=== PATIENT | female | born 1990 | race Caucasian/White ===

== ENCOUNTER 2019-01-27 03:40 | Inpatient (IN) | payer BC ==
[2019-01-27] MEDS ORDERED: Sodium Chloride 0.9% 10 ML Syringe FLUSH PRN (17:14)
[2019-01-27] MEDS ORDERED: Methylergonovine 0.2 MG/1 ML Amp IM PRN (17:14)
[2019-01-27] MEDS ORDERED: Lidocaine 1% 50 ML MDV INJECT PRN (17:14)
[2019-01-27] MEDS ORDERED: Water For Irrigation,Sterile 1,000 ML Container IRR PRN (17:14)
[2019-01-27] MEDS ORDERED: Butorphanol 1 MG/ML SDV IVPUSH PRN (17:14)
[2019-01-27] MEDS ORDERED: Carboprost Tromethamine 250 MCG/1 ML Amp IM PRN (17:14)
[2019-01-27] MEDS ORDERED: Tranexamic Acid 1,000 MG in Sodium Chloride 0.9% 100 ML IV PRN (17:14)
[2019-01-27] MEDS ORDERED: Sodium Chloride 0.9% 2.5 ML Syringe FLUSH PRN (17:14)
[2019-01-27] MEDS ORDERED: Misoprostol 200 MCG Tab PO PRN (17:14)
[2019-01-27] MEDS ORDERED: Sodium Chloride 0.9% 10 ML SDV IV PRN (17:14)
[2019-01-27] MEDS ORDERED: Nalbuphine 10 MG/1 ML Vial IVPUSH PRN (17:14)
[2019-01-27] MEDS ORDERED: Oxytocin/0.9 % Sodium Chloride 30 UNIT/500 ML BAG IV SCH ×2 (17:15→17:30)
[2019-01-27] MEDS ORDERED: Terbutaline 1 MG/ML SDV SUBCUT PRN (17:25)
[2019-01-27] MEDS ORDERED: Misoprostol 25 MCG (1/4 of 100 MCG) Tab VAG PRN ×2 (17:25)
[2019-01-27 19:43] LABS: CHLORIDE,CL 105 mmol/L (98-107); SODIUM,NA 140 mmol/L (136-145)
[2019-01-27] MEDS: Lactated Ringers 1,000 ML IV SCH (23:05)
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
[2019-01-27] MEDS ORDERED: fentaNYL 100 MCG/2 ML SDV ONE (23:50)
[2019-01-27] MEDS ORDERED: Lidocaine HCl/EPINEPHrine 5 ML IJ ONE (23:50)
[2019-01-28] MEDS: Lactated Ringers 1,000 ML IV SCH (00:37)
[2019-01-28] MEDS ORDERED: Bupivacaine 0.25% 10 ML SDV ONE (01:56)
[2019-01-28] MEDS ORDERED: Benzocaine/Menthol 20%-0.5% Spray 78 GM Cannister TOP PRN (04:53)
[2019-01-28] MEDS ORDERED: Witch Hazel Medicated Pads 40/Jar TOP PRN (04:53)
[2019-01-28] MEDS ORDERED: Ibuprofen 400 MG Tab PO PRN (04:53)
[2019-01-28] MEDS ORDERED: Lanolin 100% Cream 7 GM Tube TOP PRN (04:53)
[2019-01-28] MEDS ORDERED: oxyCODONE 5 MG Tab PO PRN (04:53)
[2019-01-28] MEDS ORDERED: Docusate Sodium 100 MG Cap PO PRN (04:53)
[2019-01-28] MEDS ORDERED: Bisacodyl 10 MG Supp RECTAL PRN (04:53)
[2019-01-28] MEDS ORDERED: Acetaminophen 500 MG Tab PO PRN ×2 (04:53)
--- NOTE | 2019-01-28 04:59 | PCM.DEL ---
L & D Note - General Info Date of Service: 01/28/19 Mother's Due Date: 01/31/19 - Delivery Note Labor: Augmented by Oxytocin Cervical Ripening Method: Misoprostil Delivery Outcome: Livebirth Delivery Method: Spontaneous Vaginal Delivery-Single Presentation: Right Occiput Anterior (SOCORRO) Nuchal Cord: None Anesthesia Type: Epidural Anesthetic: Lidocaine (Xylocaine) 1% Plain Local Anesthetic Volume: 4cc Laceration: 2nd Degree Suture type: Vicryl, Other (3.0 monocryl) Suture size: 3-0 Placenta: Intact Cord: 3 Vessels Estimated Blood Loss: 350 Resuscitation Needed: No Score 1 min: 8 Score 5 min: 9 Delivery Comments (Free Text/Narrative):: Live female delivered at 3.40am , 8/9 , weight: 3200g , second degree laceration repaired in layers with 3.0 vicryl and 3.0 monocryl Hemabate given due to some atony - General Info Date of Service: 01/28/19 - Patient Data Weight - Most Recent: 98.883 kg Lab Results Last 24 Hours: Laboratory Results - last 24 hr 01/27/19 01/27/19 01/27/19 Range/Units 17:32 17:32 17:32 WBC 11.64 H (4.0-11.0) K/uL RBC 4.20 L (4.30-5.90) M/uL Hgb 13.4 (12.0-16.0) g/dL Hct 38.5 (36.0-46.0) % MCV 91.7 (80.0-98.0) fL MCH 31.9 (27.0-32.0) pg MCHC 34.8 (31.0-37.0) g/dL RDW Std Deviation 47.7 (28.0-62.0) fl RDW Coeff of Kathrin 14 (11.0-15.0) % Plt Count 238 (150-400) K/uL MPV 12.90 H (7.40-12.00) fL Nucleated RBC % 0.0 /100WBC Nucleated RBCs # 0 K/uL Sodium 140 (136-145) mmol/L Potassium 3.6 (3.5-5.1) mmol/L Chloride 105 (98-107) mmol/L Carbon Dioxide 20.5 L (21.0-32.0) mmol/L BUN 6 L (7.0-18.0) mg/dL Creatinine 0.7 (0.6-1.0) mg/dL Est Cr Clr Drug Dosing 103.32 mL/min Estimated GFR (MDRD) > 60.0 ml/min Glucose 71 L (74-106) mg/dL Uric Acid 5.7 (2.6-7.2) mg/dL Calcium 9.0 (8.5-10.1) mg/dL Total Bilirubin 0.3 (0.2-1.0) mg/dL AST 24 (15-37) IU/L ALT 20 (14-63) IU/L Alkaline Phosphatase 203 H (46-116) U/L Total Protein 6.4 (6.4-8.2) g/dL Albumin 2.6 L (3.4-5.0) g/dL Globulin 3.8 (2.6-4.0) g/dL Albumin/Globulin Ratio 0.7 L (0.9-1.6) Urine Color Urine Appearance Urine pH (5.0-8.0) Ur Specific [place] (1.001-1.035) Urine Protein (NEGATIVE) mg/dL Urine Glucose (UA) (NEGATIVE) mg/dL Urine Ketones (NEGATIVE) mg/dL Urine Occult Blood (NEGATIVE) Urine Nitrite (NEGATIVE) Urine Bilirubin (NEGATIVE) Urine Urobilinogen (<2.0) EU/dL Ur Leukocyte Esterase (NEGATIVE) Blood Type A POSITIVE Antibody Screen NEGATIVE 01/27/19 Range/Units 20:15 WBC (4.0-11.0) K/uL RBC (4.30-5.90) M/uL Hgb (12.0-16.0) g/dL Hct (36.0-46.0) % MCV (80.0-98.0) fL MCH (27.0-32.0) pg MCHC (31.0-37.0) g/dL RDW Std Deviation (28.0-62.0) fl RDW Coeff of Kathrin (11.0-15.0) % Plt Count (150-400) K/uL MPV (7.40-12.00) fL Nucleated RBC % /100WBC Nucleated RBCs # K/uL Sodium (136-145) mmol/L Potassium (3.5-5.1) mmol/L Chloride (98-107) mmol/L Carbon Dioxide (21.0-32.0) mmol/L BUN (7.0-18.0) mg/dL Creatinine (0.6-1.0) mg/dL Est Cr Clr Drug Dosing mL/min Estimated GFR (MDRD) ml/min Glucose (74-106) mg/dL Uric Acid (2.6-7.2) mg/dL Calcium (8.5-10.1) mg/dL Total Bilirubin (0.2-1.0) mg/dL AST (15-37) IU/L ALT (14-63) IU/L Alkaline Phosphatase (46-116) U/L Total Protein (6.4-8.2) g/dL Albumin (3.4-5.0) g/dL Globulin (2.6-4.0) g/dL Albumin/Globulin Ratio (0.9-1.6) Urine Color YELLOW Urine Appearance SLT CLOUDY Urine pH 5.5 (5.0-8.0) Ur Specific [place] 1.010 (1.001-1.035) Urine Protein NEGATIVE (NEGATIVE) mg/dL Urine Glucose (UA) NEGATIVE (NEGATIVE) mg/dL Urine Ketones NEGATIVE (NEGATIVE) mg/dL Urine Occult Blood SMALL H (NEGATIVE) Urine Nitrite NEGATIVE (NEGATIVE) Urine Bilirubin NEGATIVE (NEGATIVE) Urine Urobilinogen 0.2 (<2.0) EU/dL Ur Leukocyte Esterase NEGATIVE (NEGATIVE) Blood Type Antibody Screen Med Orders - Current: Current Medications Acetaminophen (Tylenol Extra Strength) 500 mg PO Q4H PRN PRN Reason: Pain Acetaminophen (Tylenol Extra Strength) 1,000 mg PO Q4H PRN PRN Reason: Pain Benzocaine/Menthol (Dermoplast Pain Relief 20%-0.5% [place]) 78 gm TOP ASDIRECTED PRN PRN Reason: Perineal Comfort Measure Bisacodyl (Dulcolax) 10 mg RECTAL ONETIME PRN PRN Reason: Constipation Carboprost Tromethamine (Hemabate Ds) 250 mcg IM ASDIRECTED PRN PRN Reason: Post Hemorrhage Emollient Ointment (Lansinoh Hpa) 0 gm TOP ASDIRECTED PRN PRN Reason: Sore Nipples Lactated Ringer's (Ringers, Lactated) 1,000 mls @ 150 mls/hr IV ASDIRECTED CHUCHO Last Infusion: 01/28/19 01:09 Dose: 150 mls/hr Oxytocin/Sodium Chloride (Oxytocin 30 Unit/500 Ml-Ns) 30 unit in 500 mls @ 500 mls/hr IV TITRATE [facility] Tranexamic Acid 1,000 mg/ (Sodium Chloride) 110 mls @ 660 mls/hr IV ONETIME PRN PRN Reason: Bleeding Oxytocin/Sodium Chloride (Oxytocin 30 Unit/500 Ml-Ns) 30 unit in 500 mls @ 2 mls/hr IV TITRATE [facility]; Protocol Last Titration: 01/28/19 03:40 Dose: 99 munits/min, 99 mls/hr Ibuprofen (Motrin) 400 mg PO Q4H PRN PRN Reason: Pain Ibuprofen (Motrin) 800 mg PO Q6H PRN PRN Reason: Pain Lidocaine HCl (Xylocaine 1%) 50 ml INJECT ONETIME PRN PRN Reason: Laceration repair Last Admin: 01/28/19 04:10 Dose: 50 ml Methylergonovine Maleate (Methergine) 0.2 mg IM ASDIRECTED PRN PRN Reason: Post Hemorrhage Misoprostol (Cytotec) 200 mcg PO ONETIME PRN PRN Reason: Post Hemorrhage Oxycodone HCl (Oxycodone) 5 mg PO Q2H PRN PRN Reason: Pain Sodium Chloride (Saline Flush) 10 ml FLUSH ASDIRECTED PRN PRN Reason: Keep Vein Open Sodium Chloride (Saline Flush) 2.5 ml FLUSH ASDIRECTED PRN PRN Reason: Keep Vein Open Sodium Chloride (Normal Saline) 10 ml IV ASDIRECTED PRN PRN Reason: IV Use Sterile Water (Sterile Water For Irrigation) 1,000 ml IRR ASDIRECTED PRN PRN Reason: delivery Last Admin: 01/28/19 04:10 Dose: 1,000 ml Witch Neris (Tucks) 1 pad TOP ASDIRECTED PRN PRN Reason: comfort care Discontinued Medications Bupivacaine HCl (Sensorcaine-Mpf 0.25%) Confirm Administered Dose 10 ml .ROUTE .STK-MED ONE Stop: 01/28/19 01:57 Butorphanol Tartrate (Stadol) 1 mg IVPUSH Q1H PRN PRN Reason: Pain Fentanyl (Sublimaze) Confirm Administered Dose 100 mcg .ROUTE .STK-MED ONE Stop: 01/27/19 23:51 Fentanyl/Bupivacaine HCl (Znedskmk-Xlace-Ep 2 Mcg/Ml-0.125%) Confirm Administered Dose 100 mls @ as directed .ROUTE .STK-MED ONE Stop: 01/27/19 23:51 Lidocaine/Epinephrine (Lidocaine 1.5%-Epi 1:200,000) Confirm Administered Dose 5 ml IJ .STK-MED ONE Stop: 01/27/19 23:51 Misoprostol (Cytotec) 25 mcg VAG ONETIME PRN PRN Reason: Cervical Ripening Last Admin: 01/27/19 18:09 Dose: 25 mcg Misoprostol (Cytotec) 25 mcg VAG Q4H PRN PRN Reason: Cervical Ripening Nalbuphine HCl (Nubain) 10 mg IVPUSH Q1H PRN PRN Reason: Pain (severe 7-10) Terbutaline Sulfate (Brethine) 0.25 mg SUBCUT ASDIRECTED PRN PRN Reason: Tacysystole - Problem List & Annotations (1) Vaginal delivery SNOMED Code(s): 348226289 Code(s): O80 - ENCOUNTER FOR FULL-TERM UNCOMPLICATED DELIVERY Status: Acute Current Visit: Yes - Problem List Review Problem List Initiated/Reviewed/Updated: Yes - My Orders Last 24 Hours: My Active Orders 01/27/19 17:14 Patient Status [ADT] Routine Heart Tones [RC] CONTINUOUS Non Stress Test [RC] PER UNIT ROUTINE May Shower [RC] ASDIRECTED Notify Provider [RC] PRN Up ad Siomara [RC] ASDIRECTED Vaginal Exam [RC] PRN Vital Signs [RC] PER UNIT ROUTINE Carboprost Tromethamine [Hemabate DS] 250 mcg IM ASDIRECTED PRN Lidocaine 1% [Xylocaine 1%] 50 ml INJECT ONETIME PRN Methylergonovine [Methergine] 0.2 mg IM ASDIRECTED PRN Sodium Chloride 0.9% [Normal Saline] 10 ml IV ASDIRECTED PRN Sodium Chloride 0.9% [Saline Flush] 10 ml FLUSH ASDIRECTED PRN Sodium Chloride 0.9% [Saline Flush] 2.5 ml FLUSH ASDIRECTED PRN Tranexamic Acid [Cyklokapron] 1,000 mg Sodium Chloride 0.9% [Normal Saline] 100 ml IV ONETIME Water For Irrigation,Sterile [Sterile Water for Irrigation] 1,000 ml IRR ASDIRECTED PRN miSOPROStol [Cytotec] 200 mcg PO ONETIME PRN Peripheral IV Insertion Adult [OM.PC] Routine 01/27/19 17:15 Lactated Ringers [Ringers, Lactated] 1,000 ml IV ASDIRECTED Oxytocin/0.9 % Sodium Chloride [Oxytocin 30 Unit/500 ML-NS] 30 unit in 500 ml IV TITRATE 01/27/19 17:25 Bedrest Bathroom Privileges [RC] ASDIRECTED Communication Order [RC] ASDIRECTED Communication Order [RC] ASDIRECTED Communication Order [RC] ASDIRECTED Notify Provider [RC] PRN Notify Provider [RC] PRN Notify Provider [RC] STAT Vaginal Exam [RC] PRN Vital Signs [RC] PER UNIT ROUTINE 01/27/19 17:30 Oxytocin/0.9 % Sodium Chloride [Oxytocin 30 Unit/500 ML-NS] 30 unit in 500 ml IV TITRATE Medication Administration Instruction [OM.PC] Q3H 01/27/19 Dinner Regular Diet [DIET] 01/28/19 04:53 Patient Status [ADT] Routine May Shower [RC] ASDIRECTED Up ad Siomara [RC] ASDIRECTED Vital Signs [RC] PER UNIT ROUTINE Acetaminophen [Tylenol Extra Strength] 1,000 mg PO Q4H PRN Acetaminophen [Tylenol Extra Strength] 500 mg PO Q4H PRN Benzocaine/Menthol [Dermoplast Pain Relief 20%-0.5% [place]] 78 gm TOP ASDIRECTED PRN Bisacodyl [Dulcolax] 10 mg RECTAL ONETIME PRN Docusate Sodium [Colace] 100 mg PO BID PRN Ibuprofen [Motrin] 400 mg PO Q4H PRN Ibuprofen [Motrin] 800 mg PO Q6H PRN Lanolin [Lansinoh HPA] See Dose Instructions TOP ASDIRECTED PRN Witch Neris [Tucks] 1 pad TOP ASDIRECTED PRN oxyCODONE 5 mg PO Q2H PRN Assess Lochia [WOMSER] Per Unit Routine Assess Uterine Involution [WOMSER] Per Unit Routine Peripheral IV Discontinue [OM.PC] Routine Resuscitation Status Routine 01/29/19 05:11 HEMOGLOBIN/HEMATOCRIT,HH [HEME] Timed
[2019-01-28] MEDS: Ibuprofen 800 MG Tab PO PRN ×2 (12:48→19:35)
[2019-01-28] MEDS ORDERED: Nicotine 14 MG/24 Hr Patch TRDERM SCH (18:30)
[2019-01-29] MEDS: Ibuprofen 800 MG Tab PO PRN ×2 (04:20→13:01)
--- NOTE | 2019-01-29 08:10 | PCM.PNPP ---
- General Info Date of Service: 01/29/19 Subjective Update: 28 yo P1 s/p PPD 1 , stable , BP well controlled , Denies headache , RUQ pain and BV Functional Status: Reports: Pain Controlled, Tolerating Diet, Ambulating, Urinating - Review of Systems General: Reports: No Symptoms HEENT: Reports: No Symptoms Pulmonary: Reports: No Symptoms Cardiovascular: Reports: No Symptoms Gastrointestinal: Reports: No Symptoms Genitourinary: Reports: No Symptoms Musculoskeletal: Reports: No Symptoms Skin: Reports: No Symptoms Neurological: Reports: No Symptoms Psychiatric: Reports: No Symptoms - General Info Date of Service: 01/29/19 - Patient Data Vital Signs - Most Recent: Last Vital Signs Temp 36.5 C 01/29/19 05:00 Pulse 86 01/29/19 05:00 Resp 18 01/29/19 05:00 BP 125/72 01/29/19 05:00 Pulse Ox 96 01/29/19 05:00 Weight - Most Recent: 98.883 kg I&O - Last 24 Hours: Intake & Output 01/28/19 01/29/19 01/29/19 22:59 06:59 14:59 Output Total 27 Balance -27 Lab Results - Last 24 Hours: Laboratory Results - last 24 hr 01/29/19 Range/Units 04:34 Hgb 8.7 L (12.0-16.0) g/dL Hct 25.6 L (36.0-46.0) % Med Orders - Current: Current Medications Acetaminophen (Tylenol Extra Strength) 500 mg PO Q4H PRN PRN Reason: Pain Acetaminophen (Tylenol Extra Strength) 1,000 mg PO Q4H PRN PRN Reason: Pain Benzocaine/Menthol (Dermoplast Pain Relief 20%-0.5% [place]) 78 gm TOP ASDIRECTED PRN PRN Reason: Perineal Comfort Measure Last Admin: 01/28/19 07:32 Dose: 1 can Bisacodyl (Dulcolax) 10 mg RECTAL ONETIME PRN PRN Reason: Constipation Carboprost Tromethamine (Hemabate Ds) 250 mcg IM ASDIRECTED PRN PRN Reason: Post Hemorrhage Last Admin: 01/28/19 04:43 Dose: 250 mcg Docusate Sodium (Colace) 100 mg PO BID PRN PRN Reason: Constipation Emollient Ointment (Lansinoh Hpa) 0 gm TOP ASDIRECTED PRN PRN Reason: Sore Nipples Last Admin: 01/28/19 07:32 Dose: 1 tube Lactated Ringer's (Ringers, Lactated) 1,000 mls @ 150 mls/hr IV ASDIRECTED CHUCHO Last Infusion: 01/28/19 01:09 Dose: 150 mls/hr Oxytocin/Sodium Chloride (Oxytocin 30 Unit/500 Ml-Ns) 30 unit in 500 mls @ 500 mls/hr IV TITRATE [facility] Tranexamic Acid 1,000 mg/ (Sodium Chloride) 110 mls @ 660 mls/hr IV ONETIME PRN PRN Reason: Bleeding Oxytocin/Sodium Chloride (Oxytocin 30 Unit/500 Ml-Ns) 30 unit in 500 mls @ 2 mls/hr IV TITRATE [facility]; Protocol Last Titration: 01/28/19 03:40 Dose: 99 munits/min, 99 mls/hr Ibuprofen (Motrin) 400 mg PO Q4H PRN PRN Reason: Pain Ibuprofen (Motrin) 800 mg PO Q6H PRN PRN Reason: Pain Last Admin: 01/29/19 04:20 Dose: 800 mg Lidocaine HCl (Xylocaine 1%) 50 ml INJECT ONETIME PRN PRN Reason: Laceration repair Last Admin: 01/28/19 04:10 Dose: 50 ml Methylergonovine Maleate (Methergine) 0.2 mg IM ASDIRECTED PRN PRN Reason: Post Hemorrhage Misoprostol (Cytotec) 200 mcg PO ONETIME PRN PRN Reason: Post Hemorrhage Nicotine (Habitrol) 14 mg TRDERM DAILY [facility] Last Admin: 01/28/19 18:43 Dose: 14 mg Oxycodone HCl (Oxycodone) 5 mg PO Q2H PRN PRN Reason: Pain Last Admin: 01/29/19 04:21 Dose: 5 mg Sodium Chloride (Saline Flush) 10 ml FLUSH ASDIRECTED PRN PRN Reason: Keep Vein Open Sodium Chloride (Saline Flush) 2.5 ml FLUSH ASDIRECTED PRN PRN Reason: Keep Vein Open Sodium Chloride (Normal Saline) 10 ml IV ASDIRECTED PRN PRN Reason: IV Use Sterile Water (Sterile Water For Irrigation) 1,000 ml IRR ASDIRECTED PRN PRN Reason: delivery Last Admin: 01/28/19 04:10 Dose: 1,000 ml Indira Cordon (Tucks) 1 pad TOP ASDIRECTED PRN PRN Reason: comfort care Last Admin: 01/28/19 07:31 Dose: 1 tub Discontinued Medications Bupivacaine HCl (Sensorcaine-Mpf 0.25%) Confirm Administered Dose 10 ml .ROUTE .STK-MED ONE Stop: 01/28/19 01:57 Last Admin: 01/28/19 23:05 Dose: Not Given Butorphanol Tartrate (Stadol) 1 mg IVPUSH Q1H PRN PRN Reason: Pain Fentanyl (Sublimaze) Confirm Administered Dose 100 mcg .ROUTE .STK-MED ONE Stop: 01/27/19 23:51 Last Admin: 01/28/19 23:05 Dose: Not Given Fentanyl/Bupivacaine HCl (Txuopyks-Hxbxr-Le 2 Mcg/Ml-0.125%) Confirm Administered Dose 100 mls @ as directed .ROUTE .STK-MED ONE Stop: 01/27/19 23:51 Last Admin: 01/28/19 23:04 Dose: Not Given Lidocaine/Epinephrine (Lidocaine 1.5%-Epi 1:200,000) Confirm Administered Dose 5 ml IJ .STK-MED ONE Stop: 01/27/19 23:51 Last Admin: 01/28/19 23:05 Dose: Not Given Misoprostol (Cytotec) 25 mcg VAG ONETIME PRN PRN Reason: Cervical Ripening Last Admin: 01/27/19 18:09 Dose: 25 mcg Misoprostol (Cytotec) 25 mcg VAG Q4H PRN PRN Reason: Cervical Ripening Nalbuphine HCl (Nubain) 10 mg IVPUSH Q1H PRN PRN Reason: Pain (severe 7-10) Terbutaline Sulfate (Brethine) 0.25 mg SUBCUT ASDIRECTED PRN PRN Reason: Tacysystole - Interaction Support Person: - Recovery Exam Fundal Tone: Firm Fundal Level: At Umbilicus Fundal Placement: Midline Lochia Amount: Scant Lochia Color: Rubra/Red Perineum Description: Other (see below) Other Perinuem Description: 2nd deg laceration Episiotomy/Laceration: Approximated Bladder Status: Voiding Urinary Elimination: Voided - Exam General: Alert HEENT: Pupils Equal Neck: Supple Lungs: Clear to Auscultation Cardiovascular: Regular Rate, Regular Rhythm GI/Abdominal Exam: Normal Bowel Sounds Extremities: Normal Inspection (slight pedal edema ) Neurological: No New Focal Deficit Psy/Mental Status: Alert - Problem List & Annotations (1) Vaginal delivery SNOMED Code(s): 498434904 Code(s): O80 - ENCOUNTER FOR FULL-TERM UNCOMPLICATED DELIVERY Status: Acute Current Visit: Yes - Problem List Review Problem List Initiated/Reviewed/Updated: Yes - Assessment Assessment:: 28 yo P1 s/p PPD1 stable , Normal Blood pressure - Plan Plan:: Discharge home today for BP check in 1 week and Routine in 6 weeks
[2019-01-29] MEDS ORDERED: Measles, Mumps & Rubella Vaccine 0.5 ML SDV SUBCUT ONE (08:11)
--- NOTE | 2019-01-29 11:48 | OR ---
SURGEON: ELIZABET LEON DATE OF PROCEDURE: 01/28/2019 PREOPERATIVE DIAGNOSIS: A 28-year-old, 2, para 0-0-1-0 at 39 weeks 4 days, admitted for induction of labor secondary to gestational hypertension, rule out preeclampsia. POSTOPERATIVE DIAGNOSIS: A 28-year-old, 2, para 0-0-1-0 at 39 weeks 4 days, admitted for induction of labor secondary to gestational hypertension, rule out preeclampsia. PROCEDURE: Normal spontaneous vaginal delivery and repair of second-degree vaginal laceration. NOTES AND FINDINGS: A live female delivered at 0340 hours, scores were 8 and 9. Weight is 3200 g. ANESTHESIA: Epidural. ESTIMATED BLOOD LOSS: 350 mL. BRIEF HISTORY: The patient was being followed for intermittent proteinuria in the urine and also was complaining of some spots in the vision and some occasional headache and increasing pedal swelling. The patient had blood pressure that was normal in the clinic, but due to concern that the patient might be developing preeclampsia, the patient was advised and patient wanted to be induced. She was explained the risks, benefits, and alternatives, and she desired to proceed. The patient's induction of labor was started with Cytotec. After she got Pitocin, and she made normal labor progress and became fully dilated. The patient had normal PIH labs. PROCEDURE IN DETAIL: With the patient being fully dilated, she was encouraged to push. She delivered the head, followed subsequently by the anterior and posterior shoulder. Pitocin was started. Then, the body of the was delivered. was placed on maternal abdomen. Delayed cord clamping was observed. The cord was clamped and cut, and placenta was then delivered via controlled cord traction. Also, the perineum was then inspected and noted to be having a second-degree laceration, It was repaired in layers, and there was slightly increased amount of bleeding. As a result, Hemabate was given x1. After repair of the laceration, the uterus was massaged and found to be hemostatic. The patient was left in delivery room in stable condition. All instrument and pad counts were correct x2. ARON COREAS /[id number] ALYSSA
== END 2019-01-29 14:10 | disposition home or self-care (01) | DRG 560 ==
LOC: MW.OB 03:40 → OBSVTOIN 01-28 03:40 → MW.OB 01-28 09:59
PROVIDERS: ADMIT Obstetrics & Gynecology; ATTEND Obstetrics & Gynecology
PROC: 3E0P7VZ Introduction of Hormone into Female Reproductive, Via Natural or Artificial Opening (ICD-10-PCS; principal; 2019-01-28)
PROC: 3E033VJ Introduction of Other Hormone into Peripheral Vein, Percutaneous Approach (ICD-10-PCS; principal; 2019-01-28)
PROC: 10E0XZZ Delivery of Products of Conception, External Approach (ICD-10-PCS; principal; 2019-01-28)
PROC: 0KQM0ZZ Repair Perineum Muscle, Open Approach (ICD-10-PCS; principal; 2019-01-28)
PROC: 00HU33Z Insertion of Infusion Device into Spinal Canal, Percutaneous Approach (ICD-10-PCS; 2019-01-28)
PROC: 3E0R3BZ Introduction of Anesthetic Agent into Spinal Canal, Percutaneous Approach (ICD-10-PCS; 2019-01-28)
PROC: 3E0234Z Introduction of Serum, Toxoid and Vaccine into Muscle, Percutaneous Approach (ICD-10-PCS; 2019-01-29)
DX: O13.4 Gestational [pregnancy-induced] hypertension without significant proteinuria, complicating childbirth (principal); O99.344 Other mental disorders complicating childbirth; F41.9 Anxiety disorder, unspecified; F32.9 Major depressive disorder, single episode, unspecified; O99.334 Smoking (tobacco) complicating childbirth; Z37.0 Single live birth; F17.210 Nicotine dependence, cigarettes, uncomplicated; O75.89 Other specified complications of labor and delivery; O70.1 Second degree perineal laceration during delivery; O99.62 Diseases of the digestive system complicating childbirth; K59.09 Other constipation; Z3A.39 39 weeks gestation of pregnancy
CPT/HCPCS: 36415; 51702; 59025; 59409; 80053; 81003; 84550; 85014; 85018; 85027; 86850; 86900; 86901; 90471; 90707; A9270-GY; J2001; J2590; J3010; J3490; J7120

== ENCOUNTER 2024-05-26 00:25 | Inpatient (IN) | payer BC ==
[2024-05-26] MEDS ORDERED: Nalbuphine 10 MG/1 ML Vial IVPUSH PRN (00:31)
[2024-05-26] MEDS ORDERED: Sodium Chloride 0.9% 2.5 ML Syringe FLUSH PRN (00:31)
[2024-05-26] MEDS ORDERED: Sodium Chloride 0.9% 20 ML SDV IV PRN (00:31)
[2024-05-26] MEDS ORDERED: Tranexamic Acid IN NACL,ISO-OS 1,000 MG in Premix Bag 1 BAG IV PRN (00:31)
[2024-05-26] MEDS ORDERED: Lidocaine 1% 50 ML MDV INJECT PRN (00:31)
[2024-05-26] MEDS ORDERED: Terbutaline 1 MG/ML SDV SUBCUT PRN (00:31)
[2024-05-26] MEDS ORDERED: Methylergonovine 0.2 MG/1 ML Amp IM PRN (00:31)
[2024-05-26] MEDS ORDERED: Carboprost Tromethamine 250 MCG/1 mL Vial IM PRN (00:31)
[2024-05-26] MEDS ORDERED: Misoprostol 200 MCG Tab PO PRN (00:31)
[2024-05-26] MEDS ORDERED: Water For Irrigation,Sterile 1,000 ML Container IRR PRN (00:31)
[2024-05-26] MEDS ORDERED: Oxytocin/0.9 % Sodium Chloride 30 UNIT/500 ML BAG IV SCH ×2 (00:45)
[2024-05-26] MEDS: Sodium Chloride 0.9% 10 ML Syringe FLUSH PRN (01:00)
[2024-05-26] MEDS: Lactated Ringers 1,000 ML IV SCH (01:00)
[2024-05-26] MEDS: Misoprostol 25 MCG (1/4 of 100 MCG) Tab VAG PRN ×2 (01:25→06:00)
[2024-05-26 01:26] LABS: HEMATOCRIT 31.3 % (37.0-47.0); HEMOGLOBIN 10.4 g/dL (12.0-16.0); MEAN CORPUSCULAR HEMOGLOBIN 28.2 pg (28.0-32.0); MEAN CORPUSCULAR HGB CONC 33.2 g/dL (32.0-36.0); MEAN CORPUSCULAR VOLUME 84.8 fL (83.0-99.0); MEAN PLATELET VOLUME 12.5 fL (9.4-12.3); PLATELET COUNT,PLT 213 K/uL (150-400); RED BLOOD CELL COUNT 3.69 M/uL (4.10-5.30); WHITE BLOOD CELL COUNT,WBC 9.15 K/uL (3.9-11.3)
[2024-05-26] MEDS: Ondansetron 4 MG/2 ML SDV IVPUSH PRN (03:37)
[2024-05-26] MEDS ORDERED: Bupivacaine 0.5% 10 ML SDV ONE (16:42)
[2024-05-26] MEDS ORDERED: Ropivacaine HCl/PF 200 ML ONE (16:42)
[2024-05-26] MEDS ORDERED: Phenylephrine HCl In 0.9% NaCl 1 MG/10 ML Syringe ONE (16:42)
[2024-05-26] MEDS ORDERED: Bupivacaine 0.5% 10 ML SDV INJECT ONE (17:04)
[2024-05-26] MEDS ORDERED: Phenylephrine HCl In 0.9% NaCl 1 MG/10 ML Syringe IVPUSH PRN (17:04)
[2024-05-26] MEDS ORDERED: ePHEDrine 50 MG/ML SDV IVPUSH PRN ×2 (17:04)
[2024-05-26] MEDS ORDERED: ePHEDrine 50 MG/ML SDV IM PRN (17:04)
[2024-05-26] MEDS ORDERED: Ropivacaine HCl/PF 400 MG in Premix Bag 1 BAG EPIDUR SCH (17:15)
[2024-05-26] MEDS: Tranexamic Acid IN NACL,ISO-OS 1,000 MG in Premix Bag 1 BAG IV PRN (18:35)
[2024-05-26] MEDS: Benzocaine/Menthol 20%-0.5% Spray 78 GM Cannister TOP PRN (19:07)
[2024-05-26] MEDS: Witch Hazel Medicated Pads 40/Jar TOP PRN (19:08)
[2024-05-26] MEDS: Lanolin 100% Cream 7 GM Tube TOP PRN (19:08)
[2024-05-26] MEDS: Methylergonovine 0.2 MG/1 ML Amp IM PRN (19:15)
[2024-05-26] MEDS: Misoprostol 200 MCG Tab RECTAL PRN (19:15)
[2024-05-26 19:18] LABS: PH,UMBILICAL ARTERIAL 7.251 (7.18-7.38)
[2024-05-26 19:19] LABS: PH,UMBILICAL VENOUS 7.348 (7.25-7.45)
[2024-05-26] MEDS: Oxytocin/0.9 % Sodium Chloride 30 UNIT/500 ML BAG ONE (19:19)
[2024-05-26] MEDS ORDERED: Calcium Gluconate 10% 1 GM/10 ML SDV ONE (19:24)
[2024-05-26 19:43] LABS: HEMATOCRIT 32.2 % (37.0-47.0); HEMOGLOBIN 10.4 g/dL (12.0-16.0); MEAN CORPUSCULAR HEMOGLOBIN 28.4 pg (28.0-32.0); MEAN CORPUSCULAR HGB CONC 32.3 g/dL (32.0-36.0); MEAN PLATELET VOLUME 12.4 fL (9.4-12.3); PLATELET COUNT,PLT 228 K/uL (150-400); RED BLOOD CELL COUNT 3.66 M/uL (4.10-5.30); WHITE BLOOD CELL COUNT,WBC 13.21 K/uL (3.9-11.3)
[2024-05-26 19:59] LABS: INR 1.1 (0.86-1.11); PTT,PARTIAL THROMBOPLSTIN TIME 22.4 SEC (23.9-30.7)
[2024-05-26 20:15] LABS: A/G RATIO 0.6 (0.9-1.6); BILIRUBIN TOTAL 0.3 mg/dL (0.2-1.0); CALCIUM 8.3 mg/dL (8.5-10.1); CARBON DIOXIDE,CO2 19.2 mmol/L (21.0-32.0); CREATININE 0.8 mg/dL (0.6-1.0); EST CRCL DRUG DOSING (CG) 86.37 mL/min; POTASSIUM,K 4.1 mmol/L (3.5-5.1); PROTEIN TOTAL,TP 5.3 g/dL (6.4-8.2)
[2024-05-26] MEDS: Ampicillin/Sulbactam Na 3 GM in Sodium Chloride 0.9% 100 ML IV ONE (21:13)
[2024-05-26] MEDS: Furosemide 20 MG/2 ML VIAL IVPUSH STA (21:32)
[2024-05-26] MEDS: Acetaminophen 1,000 MG in Premix Bag 1 BAG IV ONE (21:45)
[2024-05-26 21:48] LABS: HEMATOCRIT 35.6 % (37.0-47.0); HEMOGLOBIN 12.1 g/dL (12.0-16.0); MEAN CORPUSCULAR VOLUME 85.4 fL (83.0-99.0); MEAN PLATELET VOLUME 12.3 fL (9.4-12.3); NRBC ABSOLUTE 0.02 K/uL (0.00-0.02); NRBC PERCENT 0.1 /100WBC (0.0-0.2); PLATELET COUNT,PLT 161 K/uL (150-400); RED BLOOD CELL COUNT 4.17 M/uL (4.10-5.30)
[2024-05-26 22:03] LABS: INR 1.1 (0.86-1.11); PTT,PARTIAL THROMBOPLSTIN TIME 26.8 SEC (23.9-30.7)
[2024-05-27] MEDS: Furosemide 20 MG/2 ML VIAL IVPUSH ONE (03:17)
[2024-05-27] MEDS: Ampicillin/Sulbactam Na 1.5 GM in Sodium Chloride 0.9% 50 ML IV SCH (03:22)
[2024-05-27 05:43] LABS: HEMATOCRIT 30.3 % (37.0-47.0); HEMOGLOBIN 10.6 g/dL (12.0-16.0)
[2024-05-27] MEDS: Acetaminophen 500 MG Tab PO PRN (06:17)
[2024-05-27] MEDS: Prenatal Multivitamin with Calcium/Folic Acid/Iron Tab PO SCH (09:24)
[2024-05-27 19:19] LABS: HEMATOCRIT 31.7 % (37.0-47.0); HEMOGLOBIN 10.9 g/dL (12.0-16.0); MEAN CORPUSCULAR HEMOGLOBIN 29.1 pg (28.0-32.0); MEAN CORPUSCULAR HGB CONC 34.4 g/dL (32.0-36.0); MEAN CORPUSCULAR VOLUME 84.5 fL (83.0-99.0); PLATELET COUNT,PLT 185 K/uL (150-400); RED BLOOD CELL COUNT 3.75 M/uL (4.10-5.30); WHITE BLOOD CELL COUNT,WBC 11.02 K/uL (3.9-11.3)
[2024-05-27 19:50] LABS: INR 1.14 (0.86-1.11); PTT,PARTIAL THROMBOPLSTIN TIME 27.4 SEC (23.9-30.7)
[2024-05-27] MEDS: Docusate Sodium 100 MG Cap PO PRN (20:10)
[2024-05-28] MEDS: Ibuprofen 800 MG Tab PO PRN (11:24)
== END 2024-05-28 14:00 | disposition home or self-care (01) | DRG 560 ==
LOC: MW.OB 00:25 → UNDOADMOB 00:25 → MW.OB 00:31 → OBSVTOIN 18:25 → MW.OB 05-27 00:20
PROVIDERS: ADMIT Obstetrics & Gynecology; ATTEND Obstetrics & Gynecology
PROC: 10E0XZZ Delivery of Products of Conception, External Approach (ICD-10-PCS; principal; 2024-05-26)
PROC: 0KQM0ZZ Repair Perineum Muscle, Open Approach (ICD-10-PCS; 2024-05-26)
PROC: 3E0R3BZ Introduction of Anesthetic Agent into Spinal Canal, Percutaneous Approach (ICD-10-PCS; 2024-05-26)
PROC: 00HU33Z Insertion of Infusion Device into Spinal Canal, Percutaneous Approach (ICD-10-PCS; 2024-05-26)
PROC: 3E0P7VZ Introduction of Hormone into Female Reproductive, Via Natural or Artificial Opening (ICD-10-PCS; 2024-05-26)
DX: O42.02 Full-term premature rupture of membranes, onset of labor within 24 hours of rupture (principal); Z3A.39 39 weeks gestation of pregnancy; Z37.0 Single live birth; O70.1 Second degree perineal laceration during delivery; O72.1 Other immediate postpartum hemorrhage
CPT/HCPCS: 36415; 36430; 80053; 82803; 85014; 85018; 85027; 85610; 85730; 86592; 86850; 86900; 86901; 86920; A9270-GY; J0131; J0295; J0612; J0665; J1940; J2210; J2371; J2405; J2590; J2795; J3490; J7120; P9016; P9017